=== PATIENT | male | born 1940 | race Caucasian/White ===

== ENCOUNTER 2019-01-31 12:26 | Inpatient (IN) | payer MEDICARE, OTHER ==
[~2019-01-31] VITALS: Ht 180.3 cm; Wt 89.4 kg
[~2019-01-31 12:26] MED LIST: ASPI-807 PO; CLOP75TA15 PO; METF-442 PO; SIMV40TA5 PO
--- NOTE | 2019-01-31 12:31 | NUR ---
BIB [facility] FROM HOME, NOT EATING SINCE YESTERDAY AND UNABLE TO GET UP FROM BED. PER MEDIC, PT NORMALLY USES WALKER TO AMBULATE. NO ACUTE DISTRESS NOTED. HAS SKIN TEARS IN MULTIPLE STAGES OF HEALING ON BLE, ONE FAIRLY NEW. PT IS AOX2, VSS, RR EVEN AND UNLABORED ON 2L NC. SALINE LOCK IN PLACE COATING MANAGER, LAC 20G. ON MONITOR AND EVAL'D BY DR DIANE. AWAITING ORDERS
--- NOTE | 2019-01-31 12:43 | NUR ---
LIME PULLER AT BEDSIDE FOR BLOOD DRAW
--- NOTE | 2019-01-31 12:47 | NUR ---
PT TAKEN TO RADIOLOGY FOR CT VIA AZUL
[2019-01-31 12:53] LABS: BASOPHILS # (AUTO) 0.1 /CMM (0.0-0.2); BASOPHILS % (AUTO) 0.8 % (0.0-2.0); EOSINOPHILS % (AUTO) 1.9 % (0.0-6.0); HEMATOCRIT 40 % (39-51); HEMOGLOBIN 13.3 g/dL (13.5-17.5); LYMPHOCYTES # (AUTO) 2.3 /CMM (0.8-4.8); LYMPHOCYTES % (AUTO) 32.6 % (20.0-44.0); MEAN CORPUSCULAR HGB CONC 33 g/dl (31.0-36.0); MEAN CORPUSCULAR VOLUME 83 fL (80-96); MONOCYTES # (AUTO) 0.9 /CMM (0.1-1.30); MONOCYTES % (AUTO) 12.1 % (2.0-12.0); NEUTROPHILS # (AUTO) 3.8 /CMM (1.8-8.9); NEUTROPHILS % (AUTO) 52.6 % (43.0-81.0); PLATELET COUNT (AUTO) 182 /CMM (150-450); RED BLOOD CELL COUNT(AUTO) 4.86 MIL/uL (4.5-6.0); WHITE BLOOD COUNT (AUTO) 7.1 K/uL (4.3-11.0)
[2019-01-31] MEDS ORDERED: TAMS-12 PO (12:56)
[2019-01-31] MEDS ORDERED: AMIO200T4 PO (12:56)
[2019-01-31] MEDS ORDERED: APIX5TAB4 PO (12:56)
[2019-01-31] MEDS ORDERED: DIGO125T PO (12:56)
[2019-01-31] MEDS ORDERED: CARV12.5 PO (12:56)
[2019-01-31] MEDS ORDERED: ISOS30TA6 PO (12:56)
[2019-01-31] MEDS ORDERED: DULO60CA45 PO (12:56)
[2019-01-31] MEDS ORDERED: METF-442 PO (12:56)
[2019-01-31] MEDS ORDERED: PRAV40TA3 PO (12:56)
[2019-01-31] MEDS ORDERED: FURO-144 PO (12:56)
[2019-01-31] MEDS ORDERED: IV NS 0.9% 500 ML BAG IV ONE (13:00)
[2019-01-31 13:02] LABS: CALCIUM, SERUM 8.5 mg/dL (8.5-10.1); CARBON DIOXIDE 27 mmol/L (21-32); CHLORIDE 99 mmol/L (98-107); CREATININE 2.6 mg/dL (0.6-1.3); GLUCOSE 137 mg/dL (74-106); POTASSIUM 4.3 mmol/L (3.5-5.1); SODIUM SERUM 137 mmol/L (136-145); UREA NITROGEN, BLOOD 33 mg/dL (7-18)
[2019-01-31 13:08] LABS: ALANINE AMINOTRANSFERASE 16 U/L (12-78); ALBUMIN 3.1 g/dL (3.4-5.0); ALKALINE PHOSPHATASE 61 U/L (46-116); ASPARTATE AMINOTRANSFERASE 22 U/L (15-37); BILIRUBIN,DIRECT 0.2 mg/dL (0.0-0.2); BILIRUBIN,TOTAL 0.6 mg/dL (0.2-1.0); TOTAL PROTEIN, SERUM 6.4 g/dL (6.4-8.2)
--- NOTE | 2019-01-31 13:14 | NUR ---
DAUGHTER BRUNO [phone]
--- NOTE | 2019-01-31 13:22 | NUR ---
CALLED [employer] [address]. PHOTOGEOLOGIST WAS PAGED.
[2019-01-31] MEDS ORDERED: IV NS 0.9% 1,000 ML BAG IV ONE (13:30)
[2019-01-31] MEDS ORDERED: CEFTRIAXONE 1GM BAG (ER ONLY) 1 GM/50 ML PIGGYBACK IV ONE (13:30)
--- NOTE | 2019-01-31 13:45 | NUR ---
CALLED [facility] FOR TELE BED
--- NOTE | 2019-01-31 14:00 | NUR ---
TELE BED 320-1 GIVEN
--- NOTE | 2019-01-31 14:05 | NUR ---
CONDOM CATHETER PLACED PER PROTOCOL PER MD VERBAL ORDER. PT BROOK WELL
[2019-01-31] MEDS ORDERED: CEFTRIAXONE 1GM BAG (ER ONLY) 50 ML IV ONE (14:08)
--- NOTE | 2019-01-31 15:22 | NUR ---
REPORT GIVEN TO NATHANIEL CHERY FOR LINDA 109-T
--- NOTE | 2019-01-31 15:27 | NUR ---
REPORT RECEIVED FROM ILDA LEWIS
--- NOTE | 2019-01-31 15:30 | NUR ---
[facility]
--- NOTE | 2019-01-31 15:40 | NUR ---
RN LINDA ADMITTING NOTES RECEIVED PATIENT VIA GURNEY FROM ED. EXTREMELY LETHARGIC A/O X0 NON RESPONDING TO TOUCH OR VOICE. . NO SIGNS OR SYMPTOMS OF RESPIRATORY DISTRESS OR ACUTE PAIN NOTED SATURATING 100% ON 2 LTRS NASAL CANNULA. NO S/S OF PAIN. IV TO LAC # 20 GAUGE PATENT AND SALINE LOCKED. PHOTOS OBTAINED OF MULTIPLE ABRASIONS TO BILATERAL LOWER LEGS AND SCRATCHES TO SACRUM. MD AT BEDSIDE NAQVI CATH PLACED 16 LIBYAN DRAINING CLEAR YELLOW URINE SAFETY AND ASPIRATION PRECAUTIONS IN PLACE BED IN LOW POSITION CALL LIGHT WITHIN REACH WILL CONT TO MONITOR ACCORDINGLY.
[2019-01-31] MEDS ORDERED: DEXTROSE 50%-WATER 50 ML DISP.SYRIN IV PRN (16:30)
[2019-01-31] MEDS ORDERED: ZOLPIDEM TARTRATE 5 MG TABLET PO PRN (16:30)
[2019-01-31] MEDS ORDERED: MAGNESIUM HYDROXIDE 30 ML UDC PO PRN (16:30)
[2019-01-31] MEDS ORDERED: Z GUARD REMEDY 2 OZ OINT TP PRN (16:30)
[2019-01-31] MEDS ORDERED: MAG HYDROX/AL HYDROX/SIMETH 30 ML UDC PO PRN (16:30)
[2019-01-31] MEDS ORDERED: ONDANSETRON HCL/PF 4 MG/2 ML VIAL IVP PRN (16:30)
[2019-01-31] MEDS: IV NS 0.9% 1,000 ML IV PRN (16:45)
--- NOTE | 2019-01-31 17:30 | NUR ---
DAUGHTER CALLED ASKING ABOUT FATHER. STATES THAT SHE IS UNABLE TO COME D/T PNA. SAYS PATIENT IS SICK BECAUSE HOME HEALTH WAS NOT GIVING HIM HIS MEDS. ALSO WOULD LIKE TO BE TRANSFERRED TO [place] . TESHA MULLIGAN MADE AWARE.
[2019-01-31 18:26] LABS: APPEARANCE,URINE CLEAR (CLEAR); BILIRUBIN,URINE NEGATIVE (NEGATIVE); BLOOD, URINE NEGATIVE Ery/uL (NEGATIVE); COLOR,URINE YELLOW (YELLOW); KETONES,URINE NEGATIVE (NEGATIVE); LEUKOCYTE ESTERASE ,URINE NEGATIVE (NEGATIVE); NITRITE, URINE NEGATIVE (NEGATIVE); PROTEIN,URINE NEGATIVE (NEGATIVE); UGLUCOSE NEGATIVE (NEGATIVE); UROBILINOGEN,URINE 0.2 EU/dL (0.2)
[2019-01-31] MEDS: ENOXAPARIN SODIUM 30 MG/0.3 ML DISP.SYRIN SQ SCH (18:36)
[2019-01-31] MEDS: METRONIDAZOLE 500MG/ NS 100ML 500 MG in PREMIX 1 EA IV SCH ×2 (18:37→23:07)
[2019-01-31] MEDS: BLOOD SUGAR DIAGNOSTIC 1 EACH STRIP IN SCH ×2 (18:37→21:08)
--- NOTE | 2019-01-31 18:51 | NUR ---
PATIENT ON DEEP SLEEP,NONRESPONSIVE TO VERBAL AND TACTILE STIMULI,OBSERVED DIAPHRAGMATIC BREATHING V/S FOLLOWS,SAT 100% ON 2LITERS,BP 117/70 ,RR 16.TEMP 98,CARMITA BERMUDEZ MADE AWARE AND WILL DO STAT ABG ORDERED ,WILL CONTINUE TO FOLLOW UP.
--- NOTE | 2019-01-31 19:20 | NUR ---
LINDA/RN NOTES RECEIVED PATIENT IN BED, IN NO ACUTE DISTRESS AT THIS TIME. RESPIRATION EVEN AND UNLABORED. NO SOB NOTED. PATIENT LETHARGIC. AROUSABLE TO TACTILE STIMULI AND THAN ABLE TO SUSTAIN ALERTNESS, VERBALIZE IN FARSI, DENIES ANY PAIN AT THIS TIME. PATIENT ON 2 LITTERS VIA NC, SATURATING 98% AT THIS TIME. FC IN PLACE, DRAINING WELL WITH, CLEAR, YELLOW URINE. IV SITE ON LAC#20 GAUGE NOTED WITH NO S/S OF INFECTION, INFILTRATION. RUNNING WITH NS AT 125 ML/HR. PATIENT ON TELE MONITORING, WITH A-FIB. AWARE. SAFETY MAINTAINED, BED AT THE LOWEST LOCKED, POSITION, CALL LIGHT WITHIN REACH. WILL CONTINUE TO MONITOR PATIENT PER PLAN OF CARE.
[2019-01-31 19:30] LABS: ABG BASE EXCESS 0.2 mmol/L; ABG PCO2 55.4 mmHg (35.0-45.0); ABG PH 7.313 (7.350-7.450); AaDO2 32.3 mmHg; COHb 0.6 % (0.5-1.5); MetHb 0.5 % (0.0-1.5); O2Hb 95.9 % (94.0-97.0); SITE, ABG Right Brachial; VENT MODE, BG Nasal Cannula
--- NOTE | 2019-01-31 19:40 | NUR ---
PATIENT WAS SEEN AND EXAMINED BY DR BERMUDEZ AT BED SIDE, PATIENT ABG RESULTS RELAYED TO DR WITH NO TO GIVE PATIENT NORCAN ORDERED. WILL CONTINUE TO MONITOR PATIENT CONDITION.
--- NOTE | 2019-01-31 19:42 | NUR ---
REPORT ENDORSED TO NOC
[2019-01-31 20:00] VITALS: BP 103/60
[2019-01-31] MEDS ORDERED: NALOXONE HCL 0.4 MG/ML AMPUL IV ONE ×2 (20:00)
[2019-01-31] MEDS ORDERED: NALOXONE HCL 0.4 MG/ML AMPUL IV PRN (21:30)
[2019-02-01] VITALS: BP_SYST 103; BP_SYST 118; BP_DIAS 60
[2019-02-01] MEDS: IV NS 0.9% 1,000 ML IV PRN ×2 (02:15→17:25)
[2019-02-01 04:00] VITALS: BP 119/61
[2019-02-01] MEDS: METRONIDAZOLE 500MG/ NS 100ML 500 MG in PREMIX 1 EA IV SCH ×4 (05:01→23:00)
[2019-02-01 06:06] LABS: BASOPHILS % (AUTO) 0.4 % (0.0-2.0); EOSINOPHILS % (AUTO) 3.1 % (0.0-6.0); HEMATOCRIT 44 % (39-51); HEMOGLOBIN 14.3 g/dL (13.5-17.5); LYMPHOCYTES # (AUTO) 1.6 /CMM (0.8-4.8); LYMPHOCYTES % (AUTO) 26.7 % (20.0-44.0); MEAN CORPUSCULAR HGB CONC 33 g/dl (31.0-36.0); MEAN CORPUSCULAR VOLUME 84 fL (80-96); MONOCYTES # (AUTO) 0.8 /CMM (0.1-1.30); MONOCYTES % (AUTO) 12.5 % (2.0-12.0); NEUTROPHILS # (AUTO) 3.5 /CMM (1.8-8.9); NEUTROPHILS % (AUTO) 57.3 % (43.0-81.0); PLATELET COUNT (AUTO) 142 /CMM (150-450); RED BLOOD CELL COUNT(AUTO) 5.25 MIL/uL (4.5-6.0); WHITE BLOOD COUNT (AUTO) 6.1 K/uL (4.3-11.0)
[2019-02-01 06:19] LABS: DIGOXIN 0.65 ng/mL (0.90-2.00)
[2019-02-01 06:26] LABS: ALANINE AMINOTRANSFERASE 19 U/L (12-78); ALBUMIN 2.8 g/dL (3.4-5.0); ALKALINE PHOSPHATASE 56 U/L (46-116); ASPARTATE AMINOTRANSFERASE 25 U/L (15-37); BILIRUBIN,TOTAL 0.4 mg/dL (0.2-1.0); CALCIUM, SERUM 8.2 mg/dL (8.5-10.1); CARBON DIOXIDE 31 mmol/L (21-32); CHLORIDE 106 mmol/L (98-107); CREATININE 1.7 mg/dL (0.6-1.3); GLUCOSE 116 mg/dL (74-106); PHOSPHORUS 3.7 mg/dL (2.5-4.9); POTASSIUM 3.5 mmol/L (3.5-5.1); SODIUM SERUM 144 mmol/L (136-145); TOTAL PROTEIN, SERUM 6.1 g/dL (6.4-8.2); UREA NITROGEN, BLOOD 22 mg/dL (7-18)
[2019-02-01 06:29] LABS: MAGNESIUM 1.2 mg/dL (1.8-2.4)
--- NOTE | 2019-02-01 06:30 | NUR ---
LAB CALLED FOR CRITICAL LAB RESULTS, MAGNISIUM 1.2. CALLED YOLA TRAMMELL WITH NEW ORDER TO GIVE PATIENT 2 GRAM MG X 1 ONLY. NOTED AND CARRIED OUT
[2019-02-01 06:40] LABS: CHOLESTEROL 125 mg/dL (<200); HDL CHOLESTEROL 38 mg/dL (40-60); LDL 66 mg/dL (0-99); THYROID STIMULATING HORMONE 0.203 uIU/mL (0.358-3.74); TRIGLYCERIDES 130 mg/dL (30-150)
[2019-02-01] MEDS ORDERED: Magnesium 1GM/D5W 100ML PREMIX PIGGYBACK IV ONE (07:00)
[2019-02-01] MEDS: Magnesium 1GM/D5W 100ML PREMIX 100 ML IV SCH ×2 (07:11→08:22)
--- NOTE | 2019-02-01 07:18 | NUR ---
LINDA/RN NOTES PATIENT IN BED, IN NO ACUTE DISTRESS AT THIS TIME. RESPIRATION EVEN AND UNLABORED. NO SOB NOTED. PATIENT IS MORE AWAKE NOW, ALERT AND ORIENTED, DENIES ANY PAIN AT THIS TIME. PATIENT ON 2 LITTERS VIA NC, SATURATING 98% AT THIS TIME. FC IN PLACE, DRAINING WELL WITH, CLEAR, YELLOW URINE WITH OUTPUT OF 1600. IV SITE ON LAC#20 GAUGE NOTED WITH NO S/S OF INFECTION, INFILTRATION. PATIENT ON TELE MONITORING, WITH A-FIB. AWARE. SAFETY MAINTAINED, BED AT THE LOWEST LOCKED, POSITION, CALL LIGHT WITHIN REACH. ENDORSE TO AM SHIFT NURSE FOR GEORGE.
--- NOTE | 2019-02-01 07:20 | NUR ---
RN INITIAL NOTE GOT REPORT AT BED SIDE. PT A&O X3. ON NC 2L SATURATING 100%. ON TELE MONITOR AFIB CONTROLLED AT 69 . NAQVI CATHETER DRAINING TO GRAVITY, CLEAR URINE. BED AT THE LOWEST POSITION AND LOCKED. LAC #20 PATENT INTACT AND FLUSHED WELL. NS RUNNING AT 125 ML.HR. WILL CONTINUE TO MONITOR CLOSELY.
[2019-02-01 08:00] VITALS: BP 123/73
[2019-02-01] MEDS: CARVEDILOL 12.5 MG TABLET PO SCH ×3 (08:00→17:44)
[2019-02-01] MEDS: BLOOD SUGAR DIAGNOSTIC 1 EACH STRIP IN SCH ×4 (08:05→21:12)
[2019-02-01] MEDS: DULOXETINE HCL 30 MG CAPSULE.DR PO SCH ×3 (08:19→17:44)
[2019-02-01] MEDS: ISOSORBIDE MONONITRATE (30MG) 30 MG TAB.SR.24H PO SCH ×2 (08:20→10:52)
[2019-02-01] MEDS: DIGOXIN 0.125 MG TABLET PO SCH ×2 (08:20→10:53)
[2019-02-01] MEDS: FUROSEMIDE 40 MG TABLET PO SCH ×2 (08:21→10:52)
[2019-02-01] MEDS: INSULIN REGULAR, HUMAN 100 UNIT/ML 3 ML VIAL SQ PRN ×4 (08:24→21:14)
--- NOTE | 2019-02-01 08:52 | NUR ---
WOUND CARE CONSULT: PT PRESENTS WITH LOWER LEG WOUNDS, PRESENT ON ADMISSION. RECOMMEND DPM CONSULT. DR LEVIN NOTIFIED OF CONSULT REQUEST. DEFER TO DPM FOR LOWER LEG WOUNDS. RECOMMENDATIONS MADE FOR SKIN PROTECTION. DISCUSSED WITH NURSING STAFF. WILL SEE PRN. CURRENT GOLDEN SCORE IS 14. MD IN AGREEMENT WITH PLAN OF CARE. Addendum: 02/01/19 at 0855 by ALLYSON PERLA WNDNU Amended: Links added.
--- NOTE | 2019-02-01 09:05 | NUR ---
RN NOTE SPEECH THERAPIST AT BEDSIDE TO DO SWALLOW EVAL. DIET CHANGED TO REGULAR DIET. PT AWARE. WILL GIVE AM MEDS NOW.
--- NOTE | 2019-02-01 09:43 | NUR ---
RN NOTE PT REFUSED TO TAKE THE MEDICATION NOW AND WANTS TO HAVE THEM AFTER BREAKFAST. ALREADY CALLED [facility] TO BRING BREAKFAST.
[2019-02-01] MEDS: APIXABAN 5 MG TABLET PO SCH ×2 (10:57→17:44)
[2019-02-01] MEDS: CEFTRIAXONE 1 G in IV D5W 50 ML IV SCH (14:15)
[2019-02-01] MEDS: Magnesium 1GM/D5W 100ML PREMIX 1 G in PREMIX 1 EA IV SCH ×2 (15:26→16:44)
[2019-02-01 16:00] VITALS: BP 105/70
--- NOTE | 2019-02-01 17:30 | NUR ---
RN NOTE INFLUENZA SAMPLE COLLECTED IN REFRIGERATOR.
[2019-02-01] MEDS: CLOTRIMAZOLE 1% 15 GM TUBE TP SCH (17:45)
[2019-02-01] MEDS: ACETAMINOPHEN 325 MG TABLET PO PRN (17:51)
--- NOTE | 2019-02-01 18:49 | NUR ---
RN CLOSING NOTE PT AT BED A&O X3. FAMILY MEMBER AT BEDSIDE. NO RESPIRATORY OR CARDIAC DISTRESS AT THIS TIME. PT HAS DONYA, ONE BM. PT EVALVE DONE AND PT CAN AMBULATE WITH WALKER. WOUND CARE DONE. IV SITE L AC #20 NS AT 85 ML/HR. MG WAS REPLACED. BED AT LOWEST POSITION AND LOCKED. RAILS ARE UP. WILL ENDORSE TO THE OLEOMARGARINE MAKER NURSE FOR GEORGE.
--- NOTE | 2019-02-01 19:20 | NUR ---
MS/ RN NOTES RECEIVED PATIENT IN BED, RESTING COMFORTABLY AT THIS TIME. NO S/S OF ACUTE DISTRESS NOTED. RESPIRATION EVEN AND UNLABORED. NO SOB NOTED. PATIENT A/O X3, DENIES ANY PAIN AT THIS TIME. FC IN PLACE, PATENT, DRAINING WELL WITH, CLEAR, YELLOW URINE. IV SITE ON LAC#20 GAUGE NOTED WITH NO S/S OF INFECTION, INFILTRATION. RUNNING WITH NS AT 85 ML/HR. SAFETY MAINTAINED, BED AT THE LOWEST LOCKED, POSITION, CALL LIGHT WITHIN REACH. WILL CONTINUE TO MONITOR PATIENT PER PLAN OF CARE.
[2019-02-01 20:00] VITALS: BP 102/50
[2019-02-01] MEDS: ENOXAPARIN SODIUM 30 MG/0.3 ML DISP.SYRIN SQ SCH (21:00)
--- NOTE | 2019-02-01 21:11 | NUR ---
Held Enoxaparin due to low platelets counts 142
[2019-02-01] MEDS: ATORVASTATIN 10 MG TABLET PO SCH (21:13)
[2019-02-01] MEDS: TAMSULOSIN 0.4 MG CAP.SR.24H PO SCH (21:13)
[2019-02-01] MEDS: AMIODARONE HCL 200 MG TABLET PO SCH (21:13)
[2019-02-01] MEDS: HYDROCODONE/APAP 5/325MG 1 EACH TABLET PO PRN (21:15)
[2019-02-02] VITALS: BP 104/56
[2019-02-02 04:00] VITALS: BP 110/65
[2019-02-02] MEDS: ACETAMINOPHEN 325 MG TABLET PO PRN (04:53)
[2019-02-02] MEDS: METRONIDAZOLE 500MG/ NS 100ML 500 MG in PREMIX 1 EA IV SCH ×2 (05:22→18:19)
[2019-02-02] MEDS: HYDROCODONE/APAP 5/325MG 1 EACH TABLET PO PRN ×3 (05:31→06:32)
--- NOTE | 2019-02-02 05:41 | NUR ---
patient complain of headache 01/11. prn norco was offered for pain as ordered, patient refused, he continue to say the he want metformin, explained patient that metformin is not for pain but he continue to say he want metformin. patient in no acute distress, respiration even and unlabored. no sob noted. will continue to monitor patient condition.
--- NOTE | 2019-02-02 06:18 | NUR ---
PATIENT CALM NOW. RESTING COMFORTABLY AT THIS TIME, WILL CONTINUE TO MONITOR
--- NOTE | 2019-02-02 07:28 | NUR ---
TELE/RN NOTES PATIENT IN NO ACUTE DISTRESS, RESPIRATION EVEN AND UNLABORED. NO SOB NOTED. ALL DUE MEDS GIVEN ORDERED. ENDORSE TO AM SHIFT NURSE FOR GEORGE
[2019-02-02 08:00] VITALS: BP 128/63
[2019-02-02] MEDS: BLOOD SUGAR DIAGNOSTIC 1 EACH STRIP IN SCH ×4 (08:13→23:15)
[2019-02-02] MEDS: CARVEDILOL 12.5 MG TABLET PO SCH ×2 (08:13→18:00)
[2019-02-02] MEDS: ISOSORBIDE MONONITRATE (30MG) 30 MG TAB.SR.24H PO SCH (08:41)
[2019-02-02] MEDS: DIGOXIN 0.125 MG TABLET PO SCH (08:41)
[2019-02-02] MEDS: APIXABAN 5 MG TABLET PO SCH (08:41)
[2019-02-02] MEDS: DULOXETINE HCL 30 MG CAPSULE.DR PO SCH ×2 (08:41→17:00)
[2019-02-02] MEDS: THERAHONEY GEL 1.5 OZ TUBE TP SCH (09:00)
[2019-02-02] MEDS: DAKINS QUARTER STRENGTH (0.125%) 480 ML BOTTLE TOP SCH (09:00)
[2019-02-02] MEDS: CLOTRIMAZOLE 1% 15 GM TUBE TP SCH ×2 (09:00→17:00)
[2019-02-02] MEDS ORDERED: FERR325T23 PO (11:54)
[2019-02-02] MEDS ORDERED: GRALISE PO (11:54)
[2019-02-02] MEDS ORDERED: DOCU-141 PO (11:54)
[2019-02-02] MEDS ORDERED: CLOP75TA15 PO (11:54)
[2019-02-02] MEDS ORDERED: LORA-441 PO (11:54)
[2019-02-02] MEDS ORDERED: RANI150C4 PO (11:54)
[2019-02-02] MEDS ORDERED: MAGN400T6 PO (11:54)
[2019-02-02] MEDS ORDERED: POTA10CA43 PO (11:54)
[2019-02-02] MEDS ORDERED: CYAN10006 IJ (11:54)
[2019-02-02] MEDS ORDERED: BIOT1POW3 MC (11:54)
[2019-02-02] MEDS ORDERED: LINA72CA PO (11:54)
[2019-02-02] MEDS ORDERED: GABA-534 PO (11:54)
[2019-02-02] MEDS ORDERED: ACET1TAB23 PO (11:54)
[2019-02-02] MEDS ORDERED: NALO25TA PO (11:54)
[2019-02-02] MEDS ORDERED: [UNRECOGNIZED DRUG - OTHER] (11:54)
[2019-02-02] MEDS ORDERED: CHRO200T2 PO (11:54)
[2019-02-02] MEDS ORDERED: MULTI BETIC (11:54)
[2019-02-02] MEDS ORDERED: METRONIDAZOLE 500 MG TABLET PO SCH (12:00)
[2019-02-02] MEDS: NAPROXEN 500 MG TABLET PO SCH ×2 (12:30→17:00)
[2019-02-02] MEDS ORDERED: KETOROLAC TROMETHAMINE INJ 30 MG/ML VIAL IV ONE (12:30)
--- NOTE | 2019-02-02 15:27 | NUR ---
PATIENT HAS REFUSED ALL PO MEDS, EATING AND LAB DRAWS. EAR SPECIALIST AWARE AND FAMILY AWARE. RECEIVED ORDERS FOR HEPARIN, OKAY TO GIVE DESPITE LOW PLATELETS PER CARMITA BERMUDEZ DNP.
[2019-02-02] MEDS: CEFTRIAXONE 1 G in IV D5W 50 ML IV SCH (15:49)
[2019-02-02] MEDS: IV NS 0.9% 1,000 ML IV PRN (15:49)
[2019-02-02 16:00] VITALS: BP 140/66
--- NOTE | 2019-02-02 19:25 | NUR ---
MS/RN NOTES RECEIVED PT. SITTING UP IN BED. PT. IS AWAKE, ALERT AND ORIENTED X2. BREATHING EVEN AND UNLABORED ON ROOM AIR. NO SOB, RESPIRATORY DISTRESS OR COMPLAINTS OF PAIN NOTED AT THIS TIME. PT. WITH LEFT AC 20 GAUGE PERIPHERAL IV PRESENT, PATENT AND INTACT ADMINISTERING TO PT. NS @ 85 ML/HR. PT. WITH NAQVI CATHETER PRESENT, PATENT AND INTACT DRAINING DARK EBOIN COLORED URINE. BED LOCKED AND IN LOWEST POSITION, SIDE RAILS UP X2, BED ALARM ON, CALL LIGHT WITHIN REACH, WILL CONTINUE TO MONITOR.
[2019-02-02 20:00] VITALS: BP 137/79
[2019-02-02] MEDS: HEPARIN SODIUM, PORCINE 5000 UNITS/1 ML VIAL SQ SCH (21:00)
[2019-02-02] MEDS ORDERED: MORPHINE SULFATE INJ 2 MG/ML DISP.SYRIN IV PRN (21:30)
[2019-02-02] MEDS: TAMSULOSIN 0.4 MG CAP.SR.24H PO SCH (22:00)
[2019-02-02] MEDS: ATORVASTATIN 10 MG TABLET PO SCH (22:00)
[2019-02-02] MEDS: AMIODARONE HCL 200 MG TABLET PO SCH (22:00)
--- NOTE | 2019-02-02 22:14 | NUR ---
MS/RN NOTES PT. IS YELLING OUT DEMANDING HIS METFORMIN MEDICATION. PT. STATES HE HAS A HEADACHE AND NEEDS HIS METFORMIN. EDUCATED PT. THAT METFORMIN IS NOT FOR PAIN AND OFFERED PT. PAIN MEDICATION ORDERED. PT. REFUSING PRN PAIN MEDICATION. PT. IS AGITATED AND REFUSING SCHEDULED 2100 AND 2200 MEDICATIONS. EPIC PROJECT GEOPHYSICIST RYLEE ACEVES ASSESSED PT. AND IS AWARE. PER RYLEE ACEVES NEW ORDER: 0.5MG ATIVAN IVP X1 NOW. WILL CARRY OUT ORDER. WILL CONTINUE TO MONITOR.
[2019-02-02] MEDS ORDERED: LORAZEPAM INJ 2 MG/ML VIAL IVP ONE (22:30)
[2019-02-03] MEDS: METRONIDAZOLE 500MG/ NS 100ML 500 MG in PREMIX 1 EA IV SCH ×3 (01:44→21:32)
[2019-02-03 04:00] VITALS: BP 132/82
--- NOTE | 2019-02-03 07:00 | NUR ---
MS/RN NOTES PT. IS LYING IN BED RESTING. BREATHING EVEN AND UNLABORED ON ROOM AIR. NO SOB, RESPIRATORY DISTRESS OR COMPLAINTS OF PAIN NOTED AT THIS TIME. PT. WITH LEFT AC 20 GAUGE PERIPHERAL IV PRESENT, PATENT AND INTACT ADMINISTERING TO PT. NS @ 85 ML/HR. ALL PT. NEEDS MET. PT. ENCOURAGED TO TURN AND REPOSITION Q2H AND NEEDED THROUGHOUT SHIFT. PT. REFUSED. PT. REFUSED DRESSING CHANGES THROUGHOUT SHIFT. PT. WITH NAQVI CATHETER PRESENT, PATENT AND INTACT DRAINING DARK EBONI COLORED URINE. BED LOCKED AND IN LOWEST POSITION, SIDE RAILS UP X2, BED ALARM ON, CALL LIGHT WITHIN REACH, WILL ENDORSE TO DAYSHIFT NURSE FOR CONTINUITY OF CARE.
--- NOTE | 2019-02-03 07:30 | NUR ---
MS/RN OPENING NOTES RECEIVED REPORT FROM PM NURSE. IN BED. PT IS AWAKE, ALERT AND ORIENTED X2. BREATHING EVEN AND UNLABORED ON ROOM AIR. NO SOB, RESPIRATORY DISTRESS OR COMPLAINTS OF PAIN NOTED AT THIS TIME. IV ON L AC 20 GAUGE PATENT AND INTACT . NS @ 85 ML/HR. WITH NAQVI CATHETER PATENT AND INTACT DRAINING DARK YELLOW COLORED URINE. BED LOCKED AND IN LOWEST POSITION, SIDE RAILS UP X3, BED ALARM ON, CALL LIGHT WITHIN REACH, WILL CONTINUE TO MONITOR.
[2019-02-03 07:43] LABS: BASOPHILS % (AUTO) 0.4 % (0.0-2.0); EOSINOPHILS % (AUTO) 1.5 % (0.0-6.0); HEMATOCRIT 44 % (39-51); HEMOGLOBIN 14.6 g/dL (13.5-17.5); LYMPHOCYTES # (AUTO) 1.6 /CMM (0.8-4.8); LYMPHOCYTES % (AUTO) 26.5 % (20.0-44.0); MEAN CORPUSCULAR HGB CONC 33 g/dl (31.0-36.0); MEAN CORPUSCULAR VOLUME 82 fL (80-96); MONOCYTES # (AUTO) 0.8 /CMM (0.1-1.30); NEUTROPHILS # (AUTO) 3.6 /CMM (1.8-8.9); NEUTROPHILS % (AUTO) 58.6 % (43.0-81.0); PLATELET COUNT (AUTO) 180 /CMM (150-450); RED BLOOD CELL COUNT(AUTO) 5.38 MIL/uL (4.5-6.0); WHITE BLOOD COUNT (AUTO) 6.1 K/uL (4.3-11.0)
[2019-02-03 07:53] LABS: CALCIUM, SERUM 8.3 mg/dL (8.5-10.1); CARBON DIOXIDE 24 mmol/L (21-32); CHLORIDE 108 mmol/L (98-107); CREATININE 1.7 mg/dL (0.6-1.3); GLUCOSE 169 mg/dL (74-106); MAGNESIUM 1.6 mg/dL (1.8-2.4); PHOSPHORUS 3.7 mg/dL (2.5-4.9); SODIUM SERUM 147 mmol/L (136-145); UREA NITROGEN, BLOOD 20 mg/dL (7-18)
[2019-02-03] MEDS: BLOOD SUGAR DIAGNOSTIC 1 EACH STRIP IN SCH ×4 (07:54→21:38)
[2019-02-03] MEDS: PANTOPRAZOLE 40 MG TABLET.DR PO SCH (07:54)
[2019-02-03 08:00] VITALS: BP 115/75
[2019-02-03] MEDS: DULOXETINE HCL 30 MG CAPSULE.DR PO SCH ×2 (08:52→17:08)
[2019-02-03] MEDS: NAPROXEN 500 MG TABLET PO SCH ×2 (08:52→17:09)
[2019-02-03] MEDS: CARVEDILOL 12.5 MG TABLET PO SCH ×2 (08:52→17:09)
[2019-02-03] MEDS: ISOSORBIDE MONONITRATE (30MG) 30 MG TAB.SR.24H PO SCH (08:52)
[2019-02-03] MEDS: DIGOXIN 0.125 MG TABLET PO SCH (08:53)
[2019-02-03] MEDS: HEPARIN SODIUM, PORCINE 5000 UNITS/1 ML VIAL SQ SCH ×2 (08:53→21:36)
[2019-02-03] MEDS: INSULIN REGULAR, HUMAN 100 UNIT/ML 3 ML VIAL SQ PRN ×3 (08:55→17:30)
[2019-02-03] MEDS ORDERED: Magnesium 1GM/D5W 100ML PREMIX 100 ML IV SCH (10:42)
[2019-02-03] MEDS ORDERED: POTASSIUM CHLORIDE 10 MEQ TABLET.SA PO ONE (12:00)
[2019-02-03] MEDS: DAKINS QUARTER STRENGTH (0.125%) 480 ML BOTTLE TOP SCH (14:05)
[2019-02-03] MEDS: THERAHONEY GEL 1.5 OZ TUBE TP SCH (14:06)
[2019-02-03] MEDS: CLOTRIMAZOLE 1% 15 GM TUBE TP SCH ×2 (14:06→17:09)
[2019-02-03] MEDS: CEFTRIAXONE 1 G in IV D5W 50 ML IV SCH (14:46)
[2019-02-03 16:00] VITALS: BP 119/67
--- NOTE | 2019-02-03 16:50 | NUR ---
MS RN NOTE SEEN BY NEUROLOGIST .WILL CONTINUE TO MONITOR.
--- NOTE | 2019-02-03 18:20 | NUR ---
MS/RN CLOSING NOTES PATIENT IN BED, AWAKE, ALERT AND ORIENTED X2. BREATHING EVEN AND UNLABORED ON ROOM AIR. NO SOB, RESPIRATORY DISTRESS OR COMPLAINTS OF PAIN NOTED AT THIS TIME.PATIENT REFUSES IVF IN BETWEEN. IV ON L AC 20 GAUGE PATENT AND INTACT WITH IVF @ 75 ML/HR. WITH NAQVI CATHETER PATENT AND INTACT DRAINING YELLOW COLORED URINE. BED LOCKED AND IN LOWEST POSITION, SIDE RAILS UP X3, BED ALARM ON, CALL LIGHT WITHIN REACH, ENDORSED TO PM NURSE FOR GEORGE. Addendum: 02/03/19 at 1918 by LAUREN BONDS RN 1919
[2019-02-03 20:00] VITALS: BP 100/57
[2019-02-03] MEDS: ATORVASTATIN 10 MG TABLET PO SCH (21:36)
[2019-02-03] MEDS: TAMSULOSIN 0.4 MG CAP.SR.24H PO SCH (21:36)
[2019-02-03] MEDS: AMIODARONE HCL 200 MG TABLET PO SCH (21:37)
--- NOTE | 2019-02-03 22:44 | NUR ---
MS1/RN PATIENT IS SLEEPING AT THIS TIME, AROUSES EASILY, APPEAR COMFORTABLE, NO SIGNS OF DISTRESS NOTED CALL LIGHT IN REACH. WILL CONTINUE TO MONITOR.
[2019-02-04 04:00] VITALS: BP 109/59
[2019-02-04] MEDS: METRONIDAZOLE 500MG/ NS 100ML 500 MG in PREMIX 1 EA IV SCH ×3 (05:00→21:18)
--- NOTE | 2019-02-04 06:19 | NUR ---
MS1/RN PATIENT IS STILL SLEEPING AT THIS TIME, APPEAR COMFORTABLE, BREATHING EVEN AND UNLABORED, CALL LIGHT IN REACH. ALL NEEDS ATTENDED AT THIS TIME, WILL CONTINUE TO MONITOR.
[2019-02-04 07:21] LABS: BASOPHILS % (AUTO) 0.6 % (0.0-2.0); EOSINOPHILS % (AUTO) 5.7 % (0.0-6.0); HEMATOCRIT 39 % (39-51); HEMOGLOBIN 12.7 g/dL (13.5-17.5); LYMPHOCYTES # (AUTO) 1.9 /CMM (0.8-4.8); LYMPHOCYTES % (AUTO) 31.8 % (20.0-44.0); MEAN CORPUSCULAR HGB CONC 33 g/dl (31.0-36.0); MEAN CORPUSCULAR VOLUME 83 fL (80-96); MONOCYTES # (AUTO) 0.7 /CMM (0.1-1.30); MONOCYTES % (AUTO) 12.4 % (2.0-12.0); NEUTROPHILS % (AUTO) 49.5 % (43.0-81.0); PLATELET COUNT (AUTO) 159 /CMM (150-450); RED BLOOD CELL COUNT(AUTO) 4.69 MIL/uL (4.5-6.0)
--- NOTE | 2019-02-04 07:25 | NUR ---
RECEIVED REPORT FROM NIGHT NURSE IN BED WITH NO APPARENT DISTRESS.
[2019-02-04] MEDS: BLOOD SUGAR DIAGNOSTIC 1 EACH STRIP IN SCH ×4 (07:30→21:53)
[2019-02-04 07:38] LABS: CALCIUM, SERUM 7.8 mg/dL (8.5-10.1); CARBON DIOXIDE 26 mmol/L (21-32); CHLORIDE 109 mmol/L (98-107); CREATININE 1.4 mg/dL (0.6-1.3); GLUCOSE 130 mg/dL (74-106); MAGNESIUM 1.7 mg/dL (1.8-2.4); PHOSPHORUS 3.6 mg/dL (2.5-4.9); POTASSIUM 3.2 mmol/L (3.5-5.1); SODIUM SERUM 145 mmol/L (136-145); UREA NITROGEN, BLOOD 19 mg/dL (7-18)
[2019-02-04 07:54] VITALS: BP 114/57
[2019-02-04 08:00] VITALS: BP 114/57
[2019-02-04] MEDS ORDERED: Magnesium 1GM/D5W 100ML PREMIX 100 ML IV SCH (08:30)
[2019-02-04] MEDS: DULOXETINE HCL 30 MG CAPSULE.DR PO SCH ×2 (09:46→16:50)
[2019-02-04] MEDS: PANTOPRAZOLE 40 MG TABLET.DR PO SCH (09:47)
[2019-02-04] MEDS: DIGOXIN 0.125 MG TABLET PO SCH (09:47)
[2019-02-04] MEDS: NAPROXEN 500 MG TABLET PO SCH ×2 (09:47→16:50)
[2019-02-04] MEDS: ISOSORBIDE MONONITRATE (30MG) 30 MG TAB.SR.24H PO SCH (09:47)
[2019-02-04] MEDS: CARVEDILOL 12.5 MG TABLET PO SCH ×2 (09:48→16:57)
[2019-02-04] MEDS: HEPARIN SODIUM, PORCINE 5000 UNITS/1 ML VIAL SQ SCH ×2 (09:54→21:24)
[2019-02-04] MEDS: DAKINS QUARTER STRENGTH (0.125%) 480 ML BOTTLE TOP SCH (10:02)
[2019-02-04] MEDS: THERAHONEY GEL 1.5 OZ TUBE TP SCH (10:03)
[2019-02-04] MEDS: CLOTRIMAZOLE 1% 15 GM TUBE TP SCH ×2 (10:03→16:50)
[2019-02-04] MEDS: POTASSIUM CHLORIDE 20 MEQ TAB.PRT.SR PO SCH ×4 (11:00→16:57)
--- NOTE | 2019-02-04 12:00 | NUR ---
PATIENT APPEARS TO BE DOING WELL, NO DISTRESS, NO PAIN, DAILY MEDICATIONS WERE GIVEN, POTASSIUM AND MG WILL BE REPLACED THROUGHOUT THE DAY.
[2019-02-04] MEDS: CEFTRIAXONE 1 G in IV D5W 50 ML IV SCH (14:36)
--- NOTE | 2019-02-04 15:00 | NUR ---
CAME BY TO VISIT PATIENT. HE INFORMED ME TO KEEP THE NAQVI IN SINCE THE PATIENT REQUESTED TO STAY AN ADDITIONAL DAY. DISCHARGE IS SET FOR TOMORROW. NO PAIN NOTED, PATIENT IS QUIETLY SLEEPING.
[2019-02-04 16:00] VITALS: BP_SYST 114; BP_SYST 120; BP_DIAS 57; BP_DIAS 64
[2019-02-04] MEDS: LACTOBACILLUS RHAMNOSUS GG 1 EACH CAP.SPRINK PO SCH (16:50)
[2019-02-04] MEDS: HYDROCODONE/APAP 5/325MG 1 EACH TABLET PO PRN (16:50)
--- NOTE | 2019-02-04 17:36 | NUR ---
EVENING MEDICATION WAS GIVEN, BG ARE WITHIN NORMAL LIMIT, PAIN MEDICATION WAS GIVEN AND CONT POTASSIUM BAG RUNNING. PATIENT IS IN NO DISTRESS.
--- NOTE | 2019-02-04 19:33 | NUR ---
REPORT GIVEN TO EVAN VIA SBAR ALL QUESTIONS ANSWERED
[2019-02-04] MEDS: TAMSULOSIN 0.4 MG CAP.SR.24H PO SCH (21:18)
[2019-02-04] MEDS: AMIODARONE HCL 200 MG TABLET PO SCH (21:20)
[2019-02-04] MEDS: ATORVASTATIN 10 MG TABLET PO SCH (21:20)
[2019-02-05 00:04] VITALS: BP 135/70
[2019-02-05] MEDS: METRONIDAZOLE 500MG/ NS 100ML 500 MG in PREMIX 1 EA IV SCH (04:54)
[2019-02-05] MEDS: PANTOPRAZOLE 40 MG TABLET.DR PO SCH (06:32)
--- NOTE | 2019-02-05 06:45 | NUR ---
Patient weight is trending high from previous days measurement. Urine output is low. From report from previous day nurse MD is aware of patient low urine output and tea color.
--- NOTE | 2019-02-05 07:30 | NUR ---
RN OPENING NOTES RECEIVED PATIENT IN BED. PATIENT IS AWAKE, ALERT AND ORIENTED X2. BREATHING EVEN AND UNLABORED ON ROOM AIR. NO SOB; NOT IN ANY FORM OF DISTRESS; NO COMPLAINTS OF PAIN AT THIS TIME. IV ON L AC 20 GAUGE PATENT AND INTACT. NOTED WITH NAQVI CATHETER PATENT AND INTACT DRAINING DARK YELLOW COLORED URINE. BED LOCKED AND IN LOWEST POSITION, SIDE RAILS UP X3, BED ALARM ON, CALL LIGHT WITHIN REACH, WILL CONTINUE TO MONITOR ACCORDINGLY
[2019-02-05 07:42] LABS: BASOPHILS % (AUTO) 0.5 % (0.0-2.0); EOSINOPHILS % (AUTO) 7.3 % (0.0-6.0); HEMATOCRIT 39 % (39-51); HEMOGLOBIN 13.1 g/dL (13.5-17.5); LYMPHOCYTES # (AUTO) 1.9 /CMM (0.8-4.8); LYMPHOCYTES % (AUTO) 33.5 % (20.0-44.0); MEAN CORPUSCULAR HGB CONC 33 g/dl (31.0-36.0); MEAN CORPUSCULAR VOLUME 83 fL (80-96); MONOCYTES # (AUTO) 0.6 /CMM (0.1-1.30); MONOCYTES % (AUTO) 10.3 % (2.0-12.0); NEUTROPHILS # (AUTO) 2.8 /CMM (1.8-8.9); NEUTROPHILS % (AUTO) 48.4 % (43.0-81.0); PLATELET COUNT (AUTO) 157 /CMM (150-450); RED BLOOD CELL COUNT(AUTO) 4.75 MIL/uL (4.5-6.0); WHITE BLOOD COUNT (AUTO) 5.7 K/uL (4.3-11.0)
[2019-02-05 07:48] LABS: CARBON DIOXIDE 26 mmol/L (21-32); CHLORIDE 107 mmol/L (98-107); CREATININE 1.1 mg/dL (0.6-1.3); GLUCOSE 130 mg/dL (74-106); MAGNESIUM 1.7 mg/dL (1.8-2.4); PHOSPHORUS 2.8 mg/dL (2.5-4.9); POTASSIUM 3.6 mmol/L (3.5-5.1); SODIUM SERUM 142 mmol/L (136-145); UREA NITROGEN, BLOOD 16 mg/dL (7-18)
[2019-02-05 08:00] VITALS: BP 138/80
[2019-02-05] MEDS: BLOOD SUGAR DIAGNOSTIC 1 EACH STRIP IN SCH (08:26)
[2019-02-05] MEDS: CARVEDILOL 12.5 MG TABLET PO SCH (08:26)
[2019-02-05 08:28] VITALS: BP 138/80
[2019-02-05] MEDS: DIGOXIN 0.125 MG TABLET PO SCH (08:28)
[2019-02-05] MEDS: LACTOBACILLUS RHAMNOSUS GG 1 EACH CAP.SPRINK PO SCH (08:28)
[2019-02-05] MEDS: ISOSORBIDE MONONITRATE (30MG) 30 MG TAB.SR.24H PO SCH (08:28)
[2019-02-05] MEDS: NAPROXEN 500 MG TABLET PO SCH (08:28)
[2019-02-05] MEDS: DULOXETINE HCL 30 MG CAPSULE.DR PO SCH (08:29)
[2019-02-05] MEDS: HEPARIN SODIUM, PORCINE 5000 UNITS/1 ML VIAL SQ SCH (08:32)
[2019-02-05] MEDS: INSULIN REGULAR, HUMAN 100 UNIT/ML 3 ML VIAL SQ PRN (08:34)
[2019-02-05] MEDS: CLOTRIMAZOLE 1% 15 GM TUBE TP SCH (08:40)
[2019-02-05] MEDS: DAKINS QUARTER STRENGTH (0.125%) 480 ML BOTTLE TOP SCH (08:40)
[2019-02-05] MEDS: THERAHONEY GEL 1.5 OZ TUBE TP SCH (08:41)
--- NOTE | 2019-02-05 09:45 | NUR ---
RN NOTES DC'd DONYA MD ORDERED. TOLERATED WELL.
[2019-02-05] MEDS: Magnesium 1GM/D5W 100ML PREMIX 100 ML IV SCH ×2 (10:38→10:53)
--- NOTE | 2019-02-05 11:30 | NUR ---
RN NOTES REFUSED SECOND BAG OF MAGNESIUM. EXPLAINED RISK AND BENEFITS BUT STILL REFUSED SAYING "NO!".
--- NOTE | 2019-02-05 12:00 | NUR ---
rn notes per halle herrera, he spoke with violet lynn NP--no need homehealth, just to follow up with wound care clinic; also spoke with family--doesnt want homehealth arrangement at this time.
--- NOTE | 2019-02-05 12:30 | NUR ---
DISCHARGED PATIENT IN STABLE CONDITION PICKED UP BY MIAN,. ACCOMPANIED BY JANUSZ ALFRED AT THE [facility] VIA WHEELCHAIR. DC INSTRUCTIONS GIVEN, VERBALIZED UNDERSTANDING. DC PAPERWORK HANDED TO . ALL BELONGINGS AND MEDICATIONS RETURNED AND HANDED TO . PATIENT PULLED IV ACCESS OUT PER JANUSZ, CHECKED SITE--NO BLEEDING, NO COMPLICATIONS NOTED. REFUSED SKIN PHOTOS, SAYING "NO!, no!'. Addendum: 02/05/19 at 1522 by DEVIKA STOVER REMOVED NAMEBAND
== END 2019-02-05 12:50 | disposition home or self-care (01) | DRG 901 ==
LOC: ER 12:28 → TELE 14:23 → TELE-TD 15:00 → MEDSG1 02-01 08:40
PROVIDERS: ADMIT Hospitalist; ATTEND Hospitalist
PROC: 0JBP0ZZ Excision of Left Lower Leg Subcutaneous Tissue and Fascia, Open Approach (ICD-10-PCS; principal; 2019-02-01)
DX: T40.2X1A Poisoning by other opioids, accidental (unintentional), initial encounter (principal); G92 Toxic encephalopathy; J96.01 Acute respiratory failure with hypoxia; N17.0 Acute kidney failure with tubular necrosis; J69.0 Pneumonitis due to inhalation of food and vomit; E87.2 Acidosis; J98.11 Atelectasis; E87.0 Hyperosmolality and hypernatremia; Y92.009 Unspecified place in unspecified non-institutional (private) residence as the place of occurrence of the external cause; I48.91 Unspecified atrial fibrillation; I10 Essential (primary) hypertension; B35.3 Tinea pedis; E11.42 Type 2 diabetes mellitus with diabetic polyneuropathy; E11.51 Type 2 diabetes mellitus with diabetic peripheral angiopathy without gangrene; E11.622 Type 2 diabetes mellitus with other skin ulcer; Z79.84 Long term (current) use of oral hypoglycemic drugs; Z79.899 Other long term (current) drug therapy; E78.5 Hyperlipidemia, unspecified; Z91.19 Patient's noncompliance with other medical treatment and regimen; Z91.14 Patient's other noncompliance with medication regimen; Z87.11 Personal history of peptic ulcer disease; Z79.82 Long term (current) use of aspirin; Z79.02 Long term (current) use of antithrombotics/antiplatelets; Z79.01 Long term (current) use of anticoagulants; L98.499 Non-pressure chronic ulcer of skin of other sites with unspecified severity; E87.6 Hypokalemia; F03.90 Unspecified dementia, unspecified severity, without behavioral disturbance, psychotic disturbance, mood disturbance, and anxiety; F39 Unspecified mood [affective] disorder; E86.9 Volume depletion, unspecified; E83.42 Hypomagnesemia; Z98.890 Other specified postprocedural states; S80.812A Abrasion, left lower leg, initial encounter; S80.811A Abrasion, right lower leg, initial encounter; X58.XXXA Exposure to other specified factors, initial encounter; Y92.9 Unspecified place or not applicable; D69.6 Thrombocytopenia, unspecified; I70.0 Atherosclerosis of aorta
CPT/HCPCS: 36415; 36600; 70450-TC; 71045-TC; 73564-TC; 73590-TC; 80048-TC; 80053-TC; 80061-TC; 80076-TC; 80162-TC; 80305; 81000-TC; 82803-TC; 82962-TC; 83605-TC; 83735-TC; 83880; 84100-TC; 84439-TC; 84443-TC; 84484-TC; 85025-TC; 85730-TC; 87040-TC; 87081-TC; 87086-TC; 87400; 92526; 92611-TC; 93307-TC; 97116-TC; 97530-TC; A4216; A4349; A6403; G0378; J0696; J1644; J1650; J1815; J1885; J2060; J2310; J3475; J3480; J3490; J7030; J7040; J7050; J7060

== ENCOUNTER 2019-02-11 01:26 | Inpatient (IN) | payer MEDICARE, OTHER ==
[~2019-02-11] VITALS: Ht 160 cm; Wt 93.4 kg
[~2019-02-11 01:26] MED LIST changes: +ACET1TAB23 PO; +AMIO200T4 PO; +APIX5TAB4 PO; -ASPI-807 PO; +BIOT1POW3 MC; +CARV12.5 PO; +CHRO200T2 PO; +CYAN10006 IJ; +DIGO125T PO; +DOCU-141 PO; +DULO60CA45 PO; +FERR325T23 PO; +FURO-144 PO; +GABA-534 PO; +GRALISE PO; +ISOS30TA6 PO; +LINA72CA PO; +LORA-441 PO; +MAGN400T6 PO; +MULTI BETIC; +NALO25TA PO; +POTA10CA43 PO; +PRAV40TA3 PO; +RANI150C4 PO; -SIMV40TA5 PO; +TAMS-12 PO; +[UNRECOGNIZED DRUG - OTHER]
[2019-02-11] MEDS ORDERED: IV NS 0.9% 1,000 ML BAG IV ONE (02:00)
[2019-02-11] MEDS ORDERED: IOHEXOL-350 100 ML VIAL IV ONE (02:13)
[2019-02-11] MEDS ORDERED: IV NS 0.9% 250 ML IV ONE (02:13)
[2019-02-11 02:45] LABS: BASOPHILS % (AUTO) 0.5 % (0.0-2.0); CALCIUM, SERUM 7.7 mg/dL (8.5-10.1); CARBON DIOXIDE 29 mmol/L (21-32); CHLORIDE 103 mmol/L (98-107); CREATININE 1.9 mg/dL (0.6-1.3); EOSINOPHILS % (AUTO) 2.6 % (0.0-6.0); GLUCOSE 114 mg/dL (74-106); HEMATOCRIT 34 % (39-51); HEMOGLOBIN 11.4 g/dL (13.5-17.5); LYMPHOCYTES # (AUTO) 1.7 /CMM (0.8-4.8); LYMPHOCYTES % (AUTO) 25.1 % (20.0-44.0); MEAN CORPUSCULAR HGB CONC 34 g/dl (31.0-36.0); MEAN CORPUSCULAR VOLUME 82 fL (80-96); MONOCYTES # (AUTO) 0.9 /CMM (0.1-1.30); MONOCYTES % (AUTO) 13.3 % (2.0-12.0); NEUTROPHILS # (AUTO) 4.1 /CMM (1.8-8.9); NEUTROPHILS % (AUTO) 58.5 % (43.0-81.0); PLATELET COUNT (AUTO) 183 /CMM (150-450); POTASSIUM 3.5 mmol/L (3.5-5.1); RED BLOOD CELL COUNT(AUTO) 4.08 MIL/uL (4.5-6.0); SODIUM SERUM 139 mmol/L (136-145); UREA NITROGEN, BLOOD 27 mg/dL (7-18); WHITE BLOOD COUNT (AUTO) 6.9 K/uL (4.3-11.0)
[2019-02-11 02:52] LABS: ALANINE AMINOTRANSFERASE 23 U/L (12-78); ALBUMIN 2.8 g/dL (3.4-5.0); ALKALINE PHOSPHATASE 54 U/L (46-116); ASPARTATE AMINOTRANSFERASE 29 U/L (15-37); BILIRUBIN,DIRECT 0.2 mg/dL (0.0-0.2); BILIRUBIN,TOTAL 0.5 mg/dL (0.2-1.0); TOTAL PROTEIN, SERUM 5.6 g/dL (6.4-8.2)
[2019-02-11] MEDS ORDERED: ZOLPIDEM TARTRATE 5 MG TABLET PO PRN (06:00)
[2019-02-11] MEDS ORDERED: MAG HYDROX/AL HYDROX/SIMETH 30 ML UDC PO PRN (06:00)
[2019-02-11] MEDS ORDERED: MAGNESIUM HYDROXIDE 30 ML UDC PO PRN (06:00)
[2019-02-11] MEDS ORDERED: ONDANSETRON HCL/PF 4 MG/2 ML VIAL IVP PRN (06:00)
[2019-02-11] MEDS ORDERED: Z GUARD REMEDY 2 OZ OINT TP PRN (06:00)
[2019-02-11 06:08] VITALS: BP 125/67
[2019-02-11] MEDS: IV D5/0.45 NACL 1,000 ML IV PRN ×2 (06:29→21:35)
[2019-02-11 08:00] VITALS: BP 104/67
[2019-02-11] MEDS: CARVEDILOL 12.5 MG TABLET PO SCH ×2 (10:30→16:52)
[2019-02-11] MEDS ORDERED: LORATADINE 10 MG TAB.RAPDIS 24H PO SCH (10:30)
[2019-02-11] MEDS: FAMOTIDINE (20 MG) 20 MG TABLET PO SCH (11:03)
[2019-02-11] MEDS: CLOPIDOGREL BISULFATE 75 MG TABLET PO SCH (11:04)
[2019-02-11] MEDS: GABAPENTIN 300 MG CAPSULE PO SCH (11:04)
[2019-02-11] MEDS: ISOSORBIDE MONONITRATE (30MG) 30 MG TAB.SR.24H PO SCH (11:04)
[2019-02-11] MEDS: DOCUSATE SODIUM 100 MG CAPSULE PO SCH (11:04)
[2019-02-11] MEDS: DIGOXIN 0.125 MG TABLET PO SCH (11:04)
[2019-02-11] MEDS: LORATADINE 10 MG TABLET PO SCH (11:34)
[2019-02-11] MEDS: APIXABAN 5 MG TABLET PO SCH ×2 (11:35→16:53)
[2019-02-11 12:00] VITALS: BP 108/63
[2019-02-11 16:00] VITALS: BP 120/60
[2019-02-11] MEDS: HYDROCODONE/APAP 5/325MG 1 EACH TABLET PO PRN (16:52)
[2019-02-11] MEDS ORDERED: DEXTROSE 50%-WATER 50 ML DISP.SYRIN IV PRN (19:00)
[2019-02-11 20:00] VITALS: BP 107/75
[2019-02-11] MEDS: BLOOD SUGAR DIAGNOSTIC 1 EACH STRIP IN SCH (21:35)
[2019-02-11] MEDS: AMIODARONE HCL 200 MG TABLET PO SCH (21:35)
[2019-02-11] MEDS: TAMSULOSIN 0.4 MG CAP.SR.24H PO SCH (21:35)
[2019-02-12] VITALS: BP 114/54
[2019-02-12 04:00] VITALS: BP 120/56
[2019-02-12 06:17] LABS: ALANINE AMINOTRANSFERASE 19 U/L (12-78); ALBUMIN 2.7 g/dL (3.4-5.0); ALKALINE PHOSPHATASE 61 U/L (46-116); ASPARTATE AMINOTRANSFERASE 24 U/L (15-37); BILIRUBIN,TOTAL 0.5 mg/dL (0.2-1.0); CALCIUM, SERUM 7.9 mg/dL (8.5-10.1); CARBON DIOXIDE 27 mmol/L (21-32); CHLORIDE 105 mmol/L (98-107); CREATININE 1.3 mg/dL (0.6-1.3); GLUCOSE 138 mg/dL (74-106); MAGNESIUM 1.4 mg/dL (1.8-2.4); PHOSPHORUS 3.8 mg/dL (2.5-4.9); POTASSIUM 3.6 mmol/L (3.5-5.1); SODIUM SERUM 140 mmol/L (136-145); TOTAL PROTEIN, SERUM 5.8 g/dL (6.4-8.2); UREA NITROGEN, BLOOD 18 mg/dL (7-18)
[2019-02-12 06:24] LABS: CHOLESTEROL 116 mg/dL (<200); HDL CHOLESTEROL 34 mg/dL (40-60); LDL 66 mg/dL (0-99); THYROID STIMULATING HORMONE 1.898 uIU/mL (0.358-3.74); TRIGLYCERIDES 118 mg/dL (30-150)
[2019-02-12 06:29] LABS: RED BLOOD CELL COUNT(AUTO) 4.61 MIL/uL (4.5-6.0); WHITE BLOOD COUNT (AUTO) 5.4 K/uL (4.3-11.0)
[2019-02-12 06:30] LABS: BASOPHILS % (AUTO) 0.4 % (0.0-2.0); HEMATOCRIT 38 % (39-51); HEMOGLOBIN 12.6 g/dL (13.5-17.5); LYMPHOCYTES # (AUTO) 1.7 /CMM (0.8-4.8); LYMPHOCYTES % (AUTO) 30.4 % (20.0-44.0); MEAN CORPUSCULAR HGB CONC 33 g/dl (31.0-36.0); MEAN CORPUSCULAR VOLUME 83 fL (80-96); MONOCYTES # (AUTO) 0.7 /CMM (0.1-1.30); MONOCYTES % (AUTO) 12.2 % (2.0-12.0); NEUTROPHILS # (AUTO) 2.9 /CMM (1.8-8.9); PLATELET COUNT (AUTO) 191 /CMM (150-450)
[2019-02-12] MEDS: BLOOD SUGAR DIAGNOSTIC 1 EACH STRIP IN SCH ×4 (07:24→21:14)
[2019-02-12 08:00] VITALS: BP_SYST 114; BP_SYST 117; BP_DIAS 69
[2019-02-12] MEDS: GABAPENTIN 300 MG CAPSULE PO SCH (08:41)
[2019-02-12] MEDS: FAMOTIDINE (20 MG) 20 MG TABLET PO SCH (08:41)
[2019-02-12] MEDS: ATORVASTATIN 10 MG TABLET PO SCH (08:41)
[2019-02-12] MEDS: CLOPIDOGREL BISULFATE 75 MG TABLET PO SCH (08:41)
[2019-02-12] MEDS: LORATADINE 10 MG TABLET PO SCH (08:41)
[2019-02-12] MEDS: DOCUSATE SODIUM 100 MG CAPSULE PO SCH (08:41)
[2019-02-12] MEDS: Magnesium 1GM/D5W 100ML PREMIX 100 ML IV SCH ×2 (08:42→10:27)
[2019-02-12] MEDS: APIXABAN 5 MG TABLET PO SCH ×2 (08:43→18:19)
[2019-02-12] MEDS: INSULIN REGULAR, HUMAN 100 UNIT/ML 3 ML VIAL SQ PRN ×2 (08:46→18:21)
[2019-02-12] MEDS: CARVEDILOL 12.5 MG TABLET PO SCH ×2 (09:00→18:20)
[2019-02-12] MEDS: ISOSORBIDE MONONITRATE (30MG) 30 MG TAB.SR.24H PO SCH (09:00)
[2019-02-12] MEDS ORDERED: METFORMIN 500 MG TABLET PO SCH (09:00)
[2019-02-12] MEDS: METFORMIN 500 MG TABLET PO SCH ×3 (09:00→18:19)
[2019-02-12] MEDS: DIGOXIN 0.125 MG TABLET PO SCH (09:54)
[2019-02-12] MEDS: ACETAMINOPHEN 325 MG TABLET PO PRN (09:58)
[2019-02-12] MEDS ORDERED: IV NS 0.9% 1,000 ML IV PRN (10:02)
[2019-02-12] MEDS: HYDROCODONE/APAP 5/325MG 1 EACH TABLET PO PRN ×2 (11:47→21:12)
[2019-02-12] MEDS: POTASSIUM CHLORIDE 20 MEQ TAB.PRT.SR PO SCH ×3 (11:47→13:00)
[2019-02-12 16:00] VITALS: BP 122/59
[2019-02-12 20:00] VITALS: BP 117/62
[2019-02-12] MEDS: TAMSULOSIN 0.4 MG CAP.SR.24H PO SCH (21:12)
[2019-02-12] MEDS: AMIODARONE HCL 200 MG TABLET PO SCH (21:13)
[2019-02-13 04:00] VITALS: BP 107/69
[2019-02-13] MEDS: BLOOD SUGAR DIAGNOSTIC 1 EACH STRIP IN SCH ×3 (07:36→17:47)
[2019-02-13 08:00] VITALS: BP 121/63
[2019-02-13 08:02] VITALS: BP 121/63
[2019-02-13] MEDS: GABAPENTIN 300 MG CAPSULE PO SCH (08:20)
[2019-02-13] MEDS: DIGOXIN 0.125 MG TABLET PO SCH (08:20)
[2019-02-13] MEDS: DOCUSATE SODIUM 100 MG CAPSULE PO SCH (08:20)
[2019-02-13] MEDS: ISOSORBIDE MONONITRATE (30MG) 30 MG TAB.SR.24H PO SCH (08:21)
[2019-02-13] MEDS: METFORMIN 500 MG TABLET PO SCH ×2 (08:21→16:27)
[2019-02-13] MEDS: FAMOTIDINE (20 MG) 20 MG TABLET PO SCH (08:21)
[2019-02-13] MEDS: CLOPIDOGREL BISULFATE 75 MG TABLET PO SCH (08:22)
[2019-02-13] MEDS: LORATADINE 10 MG TABLET PO SCH (08:22)
[2019-02-13] MEDS: ATORVASTATIN 10 MG TABLET PO SCH (08:22)
[2019-02-13] MEDS: CARVEDILOL 12.5 MG TABLET PO SCH ×2 (08:25→16:27)
[2019-02-13] MEDS: APIXABAN 5 MG TABLET PO SCH ×2 (08:29→16:28)
[2019-02-13 08:43] LABS: BASOPHILS % (AUTO) 0.4 % (0.0-2.0); EOSINOPHILS % (AUTO) 5.6 % (0.0-6.0); HEMATOCRIT 39 % (39-51); HEMOGLOBIN 12.9 g/dL (13.5-17.5); LYMPHOCYTES # (AUTO) 2.1 /CMM (0.8-4.8); LYMPHOCYTES % (AUTO) 40.1 % (20.0-44.0); MEAN CORPUSCULAR HGB CONC 33 g/dl (31.0-36.0); MEAN CORPUSCULAR VOLUME 83 fL (80-96); MONOCYTES # (AUTO) 0.6 /CMM (0.1-1.30); MONOCYTES % (AUTO) 11.1 % (2.0-12.0); NEUTROPHILS # (AUTO) 2.2 /CMM (1.8-8.9); NEUTROPHILS % (AUTO) 42.8 % (43.0-81.0); PLATELET COUNT (AUTO) 209 /CMM (150-450); RED BLOOD CELL COUNT(AUTO) 4.73 MIL/uL (4.5-6.0); WHITE BLOOD COUNT (AUTO) 5.1 K/uL (4.3-11.0)
[2019-02-13 08:54] LABS: ALANINE AMINOTRANSFERASE 20 U/L (12-78); ALBUMIN 2.6 g/dL (3.4-5.0); ALKALINE PHOSPHATASE 57 U/L (46-116); ASPARTATE AMINOTRANSFERASE 17 U/L (15-37); BILIRUBIN,TOTAL 0.4 mg/dL (0.2-1.0); CARBON DIOXIDE 29 mmol/L (21-32); CHLORIDE 109 mmol/L (98-107); CREATININE 1.4 mg/dL (0.6-1.3); GLUCOSE 113 mg/dL (74-106); MAGNESIUM 1.9 mg/dL (1.8-2.4); PHOSPHORUS 3.4 mg/dL (2.5-4.9); POTASSIUM 4.2 mmol/L (3.5-5.1); SODIUM SERUM 143 mmol/L (136-145); TOTAL PROTEIN, SERUM 5.9 g/dL (6.4-8.2); UREA NITROGEN, BLOOD 15 mg/dL (7-18)
[2019-02-13 16:00] VITALS: BP 107/57
[2019-02-13 16:05] VITALS: BP 107/57
[2019-02-13 20:00] VITALS: BP 122/67
[2019-02-13] MEDS: ACETAMINOPHEN 325 MG TABLET PO PRN (20:11)
[2019-02-14] MEDS ORDERED: DAKINS QUARTER STRENGTH (0.125%) 480 ML BOTTLE TOP SCH (09:00)
== END 2019-02-13 22:07 | DRG 682 ==
LOC: ER 01:51 → TELE1 05:19 → MEDSG1 02-12 10:03
PROVIDERS: ADMIT Internal Medicine; ATTEND Internal Medicine
DX: N17.0 Acute kidney failure with tubular necrosis (principal); G93.41 Metabolic encephalopathy; E43 Unspecified severe protein-calorie malnutrition; L97.929 Non-pressure chronic ulcer of unspecified part of left lower leg with unspecified severity; L97.919 Non-pressure chronic ulcer of unspecified part of right lower leg with unspecified severity; R55 Syncope and collapse; I48.91 Unspecified atrial fibrillation; I11.0 Hypertensive heart disease with heart failure; I50.9 Heart failure, unspecified; F32.9 Major depressive disorder, single episode, unspecified; I25.10 Atherosclerotic heart disease of native coronary artery without angina pectoris; N40.0 Benign prostatic hyperplasia without lower urinary tract symptoms; E78.5 Hyperlipidemia, unspecified; D50.9 Iron deficiency anemia, unspecified; E11.42 Type 2 diabetes mellitus with diabetic polyneuropathy; F41.9 Anxiety disorder, unspecified; Z68.36 Body mass index [BMI] 36.0-36.9, adult; E83.42 Hypomagnesemia; Z79.01 Long term (current) use of anticoagulants; E11.51 Type 2 diabetes mellitus with diabetic peripheral angiopathy without gangrene; E86.9 Volume depletion, unspecified; M54.9 Dorsalgia, unspecified; M25.559 Pain in unspecified hip; R09.02 Hypoxemia; E11.622 Type 2 diabetes mellitus with other skin ulcer; B35.3 Tinea pedis; T14.8XXA Other injury of unspecified body region, initial encounter; X58.XXXA Exposure to other specified factors, initial encounter; Y92.89 Other specified places as the place of occurrence of the external cause; R53.1 Weakness
CPT/HCPCS: 36415; 70450-TC; 71045-TC; 80048-TC; 80053-TC; 80061-TC; 80076-TC; 82962-TC; 83735-TC; 84100-TC; 84443-TC; 84484-TC; 85025-TC; 85730-TC; 87081-TC; 97110-TC; 97116-TC; 97530-TC; A6253; G0378; J1815; J3475; J3490; J7030; J7050; Q9967

== ENCOUNTER 2019-02-20 19:35 | Emergency (ER) | payer MEDICARE, OTHER ==
[~2019-02-20] VITALS: Ht 160 cm; Wt 92.1 kg
[~2019-02-20 19:35] MED LIST changes: -CYAN10006 IJ; +CYAN10006 IM
--- NOTE | 2019-02-20 20:00 | NUR ---
SEMAJ FROM [facility]. TO ER BED 9. AAOX3. FARSI SPEAKING. NO RESP DISTRESS, BREATHING EVEN AND UNLABORED. BROUGHT IN FOR FACIAL LACERATION S/P FALL. PER EMS REPORT, PT TRYING TO GET OUT OF BED AND FELL. NOTED 1.5CM LACEARATION ON BRIDGE OF NOSE WITH MIN BLEEDING. REPORTED THAT TAKING PLAVIX. EMT AT BEDSIDE FOR WOUND CLEANING. MD AT BEDSIDE FOR EVAL. XRAY DONE AT BEDSIDE. LABS DRAWN. WILL CONTINUE TO MONIOTR PT.
[2019-02-20 20:05] LABS: BASOPHILS # (AUTO) 0.1 /CMM (0.0-0.2); BASOPHILS % (AUTO) 0.8 % (0.0-2.0); HEMATOCRIT 40 % (39-51); HEMOGLOBIN 13.5 g/dL (13.5-17.5); LYMPHOCYTES # (AUTO) 2.3 /CMM (0.8-4.8); LYMPHOCYTES % (AUTO) 32.7 % (20.0-44.0); MEAN CORPUSCULAR HGB CONC 33 g/dl (31.0-36.0); MEAN CORPUSCULAR VOLUME 84 fL (80-96); MONOCYTES # (AUTO) 0.7 /CMM (0.1-1.30); MONOCYTES % (AUTO) 9.7 % (2.0-12.0); NEUTROPHILS # (AUTO) 3.8 /CMM (1.8-8.9); NEUTROPHILS % (AUTO) 54.8 % (43.0-81.0); PLATELET COUNT (AUTO) 251 /CMM (150-450); RED BLOOD CELL COUNT(AUTO) 4.83 MIL/uL (4.5-6.0); WHITE BLOOD COUNT (AUTO) 6.9 K/uL (4.3-11.0)
--- NOTE | 2019-02-20 20:05 | NUR ---
PT TO CT ON [facility]
[2019-02-20 20:13] LABS: CALCIUM, SERUM 8.1 mg/dL (8.5-10.1); CARBON DIOXIDE 34 mmol/L (21-32); CHLORIDE 99 mmol/L (98-107); CREATININE 1.9 mg/dL (0.6-1.3); GLUCOSE 113 mg/dL (74-106); SODIUM SERUM 141 mmol/L (136-145); UREA NITROGEN, BLOOD 22 mg/dL (7-18)
--- NOTE | 2019-02-20 20:31 | NUR ---
PT BACK FROM CT. MD AT BEDSIDE FOR NOSE LACERATION CLOSURE.
--- NOTE | 2019-02-20 20:47 | NUR ---
EKG DONE BY EMT
--- NOTE | 2019-02-20 21:43 | NUR ---
[facility] ETA [id number] TRIP #[id number]
[2019-02-20 22:33] VITALS: BP 100/51
--- NOTE | 2019-02-20 22:37 | NUR ---
KETURAH 117 @ BEDSIDE FOR PT TRANSPORT TO [facility]. PT IS STABLE FOR TRANSPORT. REPORT GIVEN
--- NOTE | 2019-02-20 22:43 | NUR ---
IV removed. Catheter intact and site benign. Pressure and 4x4 applied to site. No bleeding noted.
--- NOTE | 2019-02-20 22:47 | NUR ---
REPORT GIVEN TO NATHANIEL BRICENO FOR [facility].
== END 2019-02-20 22:48 | disposition home or self-care (01) ==
LOC: ER 19:40
DX: S01.21XA Laceration without foreign body of nose, initial encounter (principal); R55 Syncope and collapse; I10 Essential (primary) hypertension; E78.5 Hyperlipidemia, unspecified; I48.91 Unspecified atrial fibrillation; E11.9 Type 2 diabetes mellitus without complications; I45.81 Long QT syndrome; W18.09XA Striking against other object with subsequent fall, initial encounter; Y93.89 Activity, other specified; Y92.89 Other specified places as the place of occurrence of the external cause; Y99.8 Other external cause status
CPT/HCPCS: 12013; 36415; 70450; 70486; 71045; 80048; 84484; 85025; 93005; 99284; A6403

== ENCOUNTER 2019-02-25 17:24 | Emergency (ER) | payer MEDICARE, OTHER ==
[~2019-02-25] VITALS: Ht 172.7 cm; Wt 70.3 kg
[2019-02-25 17:29] VITALS: BP 99/56
[2019-02-25] MEDS ORDERED: BLOO-668 IN (17:49)
[2019-02-25] MEDS ORDERED: ASCO500T9 PO (17:49)
[2019-02-25] MEDS ORDERED: ZINC220C8 PO (17:49)
[2019-02-25] MEDS ORDERED: INSU100V11 SQ (17:49)
[2019-02-25] MEDS ORDERED: ACET-868 PO (17:49)
[2019-02-25] MEDS ORDERED: MULT-447 PO (17:49)
[2019-02-25] MEDS ORDERED: LACT1CAP7 PO (17:49)
[2019-02-25] MEDS ORDERED: TDAP [DIPH/PERTUSSIS/TET] 0.5 ML VIAL IM ONE ×2 (18:30→18:54)
--- NOTE | 2019-02-25 18:57 | NUR ---
pt eula at home speaks carrie deal to interput . sent to ct lac to nose tennus given left arm deltoid tolerated well
--- NOTE | 2019-02-25 19:33 | NUR ---
VITAL SIGNS HR 65 BP 103/63 RESP 16 O2 98% ON 2L NC
--- NOTE | 2019-02-25 20:21 | NUR ---
[facility] ETA [id number] TRIP [id number]
--- NOTE | 2019-02-25 21:00 | NUR ---
REPORT GIVEN TO NATHANIEL DOE AT [facility]
== END 2019-02-25 21:41 | disposition home or self-care (01) ==
LOC: ER 17:27
DX: S00.83XA Contusion of other part of head, initial encounter (principal); S50.311A Abrasion of right elbow, initial encounter; I10 Essential (primary) hypertension; I48.91 Unspecified atrial fibrillation; E78.5 Hyperlipidemia, unspecified; E11.9 Type 2 diabetes mellitus without complications; Z79.4 Long term (current) use of insulin; Z79.899 Other long term (current) drug therapy; Z79.84 Long term (current) use of oral hypoglycemic drugs; W18.39XA Other fall on same level, initial encounter; Y93.89 Activity, other specified; Y92.091 Bathroom in other non-institutional residence as the place of occurrence of the external cause; Y99.8 Other external cause status
CPT/HCPCS: 70450-TC; 70486-TC; 72125-TC; 73080-TC; 82962-TC; 90715